=== PATIENT | female | born 1960 | race Caucasian/White ===

== ENCOUNTER → 2018-07-03 | Outpatient (CLI) | payer OTHER ==
[~2018-07-03] MED LIST: ARMOUR THYROID30 MG PO; ESIDRIX25 MG PO; METFORMIN HCL1000 MG PO
--- NOTE | 2018-07-03 21:39 | Diagnostic Imaging Report ---
EXAM: CT CHEST WO INDICATION: Smoker for 38 years COMPARISON: None TECHNIQUE: Multidetector CT scanning of the chest was performed. Coronal and sagittal multiplanar reformations were obtained. Dose modulation, iterative reconstruction, and/or weight based adjustment of the mA/kV was utilized to reduce the radiation dose to as low as reasonably achievable. Screening protocol performed. IV Contrast: None CTDIvol has been reviewed. It is below the limits set by the Radiation Protocol Committee (RPC). FINDINGS: LUNGS AND AIRWAYS: The trachea and major bronchi are unremarkable. No consolidations or edema. Calcified granuloma right upper lung. Bibasilar and lingular linear atelectasis/scarring. PLEURA: No effusions or pneumothorax. HEART, MEDIASTINUM, VESSELS: The heart is within normal size limits. No abnormal pericardial effusions. No thoracic aortic aneurysm. No mediastinal lymphadenopathy. Left thyroid lobe nodule measuring 2 cm. UPPER ABDOMEN: There are three simple hepatic cysts, the largest measures 2.5 cm in the left lobe. The gallbladder has been removed. MUSCULOSKELETAL: Bilateral breast implants. No suspicious bone lesions. IMPRESSION: 1. Lung-RADS: Negative exam. Category 1: single benign calcified granuloma. Annual screening with low dose CT is recommended. 2. Left thyroid nodule measuring 2cm. Current recommendation is for further characterization by ultrasound if this has not already been evaluated. Signed by: Dr. Carline Orourke M.D. on 07/03/2018 9:36 PM
== END ==
LOC: CT 18:06
PROVIDERS: ATTEND Internal Medicine Critical Care Medicine
DX: Z87.891 Personal history of nicotine dependence (principal); G47.33 Obstructive sleep apnea (adult) (pediatric); E66.9 Obesity, unspecified; F32.9 Major depressive disorder, single episode, unspecified; E04.2 Nontoxic multinodular goiter
CPT/HCPCS: 71250

== ENCOUNTER → 2018-07-10 | Outpatient (CLI) | payer OTHER ==
--- NOTE | 2018-07-26 06:52 | Polysomnography ---
DATE OF STUDY: July 10, 2018 DIAGNOSTIC POLYSOMNOGRAM REFERRING PHYSICIAN: Dr. Baldemar Correa. HISTORY: Ms. Garvin is a 58-year-old female with insomnia and daytime sleepiness. Patient has a past medical history of hypertension, diabetes, and thyroid disorder. Her medications are Harris Thyroid, atenolol, hydrochlorothiazide, metformin, clonazepam, and omeprazole. Patient with BMI of 34.9. Star sleepiness scale score is 16. Patient presents for a diagnostic polysomnogram. FINDINGS: Polysomnogram demonstrates total sleep time of 350 minutes with sleep efficiency of 93.5%. Sleep onset latency was achieved in 6.5 minutes and REM latency in 76.5 minutes. All sleep stages were noted. Stage N1 of 19.8%, N2 of 41.0%, N3 of 38.0%, and REM 1.7% of total sleep time. Intermittent snoring was noted. A total of 1 obstructive apnea, 2 central apneas, and 28 hypopneas were noted for an apnea-hypopnea index of 5.3 events per hour. Of note, many of these events occurred in supine position where the apnea-hypopnea index was 26.7 events per hour of supine sleep. Of note, only minimum amount of this sleep study was actually recorded in supine position. Majority of sleep study was while in the side position. The lowest oxygen saturation was 85%. A total of 143 periodic limb movements were noted for periodic limb movement index of 24.5 events per hour. However, many of the limb movements were difficult to distinguish from respiratory event related limb movements. Single-lead EKG analysis demonstrates few atrial premature contractures but was mostly unremarkable in sinus rhythm. INTERPRETATION: This was an abnormal polysomnogram due to the presence of 1. Mild obstructive sleep apnea. This is supported by oxygen desaturation, snoring, and increased apnea-hypopnea index. Multiple factors can be contributory such as obesity, thyroid disease, and structural/obstructive abnormalities in the upper airway. Evaluation and management of these factors associated with sleep apnea would be beneficial. Consideration could be for second-night polysomnogram for CPAP titration. Alternatively, the patient can be considered for positional therapy, nasal EPAP, oral appliance, or surgical evaluation. Clinical correlation is recommended. 2. Periodic limb movements in sleep. In an appropriate clinical setup (such as a history of sleep disturbance or complaints of daytime fatigue or sleepiness), this could be consistent with periodic limb movement disorder sleep (PLMD). However, because of the snoring and obstructive apneas, some of these limb movements may be secondary to respiration event-related arousals. Re-assessment of periodic limb movements will be best performed after second-night polysomnogram for CPAP or other treatment intervention. MD ARI Rajan Certified in Sleep Medicine Job#: [id number] [email or web address]
--- NOTE | 2018-08-25 03:47 | Polysomnography ---
DATE OF STUDY: August 08, 2018 TITRATION POLYSOMNOGRAM HISTORY: Ms. Garvin is a 58-year-old female with obstructive sleep apnea. Patient with July 10, 2018, diagnostic polysomnogram demonstrating an apnea hypopnea index of 5.3 events per hour with lowest oxygen saturation of 85% and periodic limb movement index of 24.5 events per hour, which were difficult to assess. Patient with Baraga sleeping scale score of 7. BMI is 34.9. Patient presents for titration polysomnogram. FINDINGS: Polysomnogram demonstrates total sleep time of 307.5 minutes. Sleep efficiency of 73.4%. CPAP was initiated at 4 cm of water and incrementally increased to 10 cm of water using a ResMed Air-fit F10 full face mask of size medium, heated humidifier, and EPR of 3. Sleep apnea was optimally corrected at the pressure setting of 10 cm of water where the apnea hypopnea index was zero events per hour. Her lowest oxygen saturation was 95% on this setting. Throughout the study, increased pressures were administered to decrease RERA and snoring events. REM sleep was studied in side position only. Of note, the periodic limb movement index was 8.8 events per hour on this night, and they were deemed subjectively to be nonsignificant. Single lead EKG analysis demonstrated rare PVCs, but was otherwise unremarkable. INTERPRETATION: This overnight CPAP titration study revealed: 1. Significant improvement in terms of alleviation of obstructive sleep apnea with the optimal CPAP pressure of 10 cm of water delivered using a ResMed Air-fit F10 full face mask of size medium, heated humidifier and C-flex of 3. The same settings are recommended for use during sleep. MD ARI Rajan Certified in Sleep Medicine Job#: [id number] SAMMIE JOHNSON
== END ==
LOC: SLEEP 21:43
PROVIDERS: ATTEND Internal Medicine Critical Care Medicine
DX: G47.33 Obstructive sleep apnea (adult) (pediatric) (principal)
CPT/HCPCS: 95810

== ENCOUNTER → 2018-08-08 | Outpatient (CLI) | payer OTHER | LOC: SLEEP 20:30 | PROVIDERS: ATTEND Internal Medicine Critical Care Medicine | DX: G47.33 Obstructive sleep apnea (adult) (pediatric) (principal) | CPT/HCPCS: 95811 ==